=== PATIENT | male | born 1990 | race Asian ===

== ENCOUNTER 2018-08-23 22:02 | Emergency (ER) | payer OTHER ==
[~2018-08-23] VITALS: Ht 177.8 cm; Wt 95.3 kg
[2018-08-23 22:12] VITALS: BP 137/82
--- NOTE | 2018-08-23 22:22 | PHYS DOC ---
Adult General Chief Complaint Chief Complaint: COUGH HPI HPI 28-year-old male presents with cough and one episode of hemoptysis. The patient tells me that he has a chronic cough during allergy season. He takes Meghan but this does not prevent the cough. Came in to the ED tonight because he was having a coughing fit and had a small amount of blood,. He is worsening sure it is not a big deal. He's had no further blood with his coughing. This occurred about 30 minutes ago. He denies fever. [place] has not been out of the country recently. He is not exposed to potentially untreated tuberculosis patient's as far as he knows. He has a referral to an manager assurance coming out. Review of Systems Review of Systems Constitutional: Denies fever or chills [] Eyes: Denies change in visual acuity, redness, or eye pain [] HENT: Denies nasal congestion or sore throat [] Respiratory: Cough without shortness of breath. Hemoptysis [] Cardiovascular: No additional information not addressed in HPI [] GI: Denies abdominal pain, nausea, vomiting, bloody stools or diarrhea [] : Denies dysuria or hematuria [] Musculoskeletal: Denies back pain or joint pain [] Integument: Denies rash or skin lesions [] Neurologic: Denies headache, focal weakness or sensory changes [] Endocrine: Denies polyuria or polydipsia [] All other systems were reviewed and found to be within normal limits, except as documented in this note. Physical Exam Physical Exam Constitutional: Well developed, well nourished, no acute distress, non-toxic appearance. Occasional coughing.[] HENT: Normocephalic, atraumatic, bilateral external ears normal, oropharynx mois t, no oral exudates, nose normal. [] Eyes: PERRLA, EOMI, conjunctiva normal, no discharge. [] Neck: Normal range of motion, no tenderness, supple, no stridor. [] Cardiovascular:Heart rate regular rhythm, no murmur [] Lungs & Thorax: Bilateral breath sounds clear to auscultation [] Abdomen: Bowel sounds normal, soft, no tenderness, no masses, no pulsatile masses. [] Skin: Warm, dry, no erythema, no rash. [] Back: No tenderness, no CVA tenderness. [] Extremities: No tenderness, no cyanosis, no clubbing, ROM intact, no edema. [] Neurologic: Alert and oriented X 3, normal motor function, normal sensory function, no focal deficits noted. [] Psychologic: Affect normal, judgement normal, mood normal. [] EKG EKG [] Radiology/Procedures Radiology/Procedures [] Impressions: Preliminary interpretation of chest x-ray: No acute cardiopulmonary abnormality is seen. Course & Med Decision Making Course & Med Decision Making Pertinent Labs and Imaging studies reviewed. (See chart for details) The patient's x-ray is unremarkable. Given the history of a single episode no fu rther issues, do not believe this is of great concern. No further workup is warranted at this time. The patient will follow up with his manager assurance referral and make an appointment soon. He is stable for discharge at this time. [] Dragon Disclaimer Dragon Disclaimer This electronic medical record was generated, in whole or in part, using a voice recognition dictation system. Departure Departure: Impression: Primary Impression: Hemoptysis Disposition: HOME, SELF-CARE Condition: STABLE Referrals: MALATHI CORREA PA-C (PCP) Patient Instructions: Hemoptysis-Brief SUSAN LITTLEJOHN DO Aug 23, 2018 22:22
--- NOTE | 2018-08-23 23:50 | RAD ---
PA and lateral chest. HISTORY: Cough, blood-tinged sputum PA and lateral views were taken of the chest. Lungs are clear. Heart is normal in size. There is no pleural effusion. IMPRESSION: 1. No acute chest disease. Electronically signed by: Edgar Hill MD (08/23/2018 11:47 PM) [facility]
== END 2018-08-23 23:04 | disposition home or self-care (01) ==
LOC: ER 22:02
DX: R04.2 Hemoptysis (principal)
CPT/HCPCS: 71046; 99284